=== PATIENT | male | born 1995 | race Asian ===

== ENCOUNTER 2023-12-08 10:52 | Emergency (ER) | payer OTHER ==
[~2023-12-08] VITALS: Ht 188 cm; Wt 118.2 kg
[2023-12-08] MEDS ORDERED: BACL10TA PO (12:25)
[2023-12-08 12:35] VITALS: BP 137/83; PULSE 65; RESP 18; TEMP 98.6
== END 2023-12-08 13:28 | disposition home or self-care (01) ==
LOC: EMS 10:52
DX: M54.32 Sciatica, left side (principal); F17.210 Nicotine dependence, cigarettes, uncomplicated
CPT/HCPCS: 99283; Z7502

== ENCOUNTER 2024-09-19 12:29 | Emergency (ER) | payer OTHER ==
[~2024-09-19] VITALS: Ht 185.4 cm; Wt 118.2 kg
[~2024-09-19 12:29] MED LIST: BACL10TA PO
[2024-09-19 12:36] VITALS: TEMP 98.1
[2024-09-19] MEDS: IBUPROFEN 400 MG TABLET PO ONE (15:18)
[2024-09-19] MEDS: ACETAMINOPHEN 500 MG TABLET PO ONE (15:18)
[2024-09-19 15:45] VITALS: BP 134/85; PULSE 89; RESP 18; O2SAT 98
== END 2024-09-19 15:46 | disposition home or self-care (01) ==
LOC: EMS 12:29
DX: S80.02XA Contusion of left knee, initial encounter (principal); F17.210 Nicotine dependence, cigarettes, uncomplicated; Z72.89 Other problems related to lifestyle; Z79.899 Other long term (current) drug therapy; W22.8XXA Striking against or struck by other objects, initial encounter; Y93.89 Activity, other specified; Y92.89 Other specified places as the place of occurrence of the external cause; Y99.0 Civilian activity done for income or pay
CPT/HCPCS: 99283